=== PATIENT | female | born 1935 ===

== ENCOUNTER 2019-05-23 05:30 | Day surgery (SDC) | payer OTHER ==
[2019-05-23] MEDS ORDERED: ENALAPRIL MALEA10 MG PO (08:18)
== END 2019-05-23 19:20 | disposition home or self-care (01) ==
LOC: CIR.AMB 05:30
DX: S52.531A Colles' fracture of right radius, initial encounter for closed fracture (principal); S66.221A Laceration of extensor muscle, fascia and tendon of right thumb at wrist and hand level, initial encounter
CPT/HCPCS: 25609; 25280; C1776